=== PATIENT | female | born 1985 | race Caucasian/White ===

== ENCOUNTER 2016-11-12 16:10 | Inpatient (IN) | payer OTHER ==
[~2016-11-12 16:10] MED LIST: PREN1TAB49 PO
[2016-11-12] MEDS ORDERED: TERBUTALINE 1 ML ONE (16:48)
[2016-11-12] MEDS ORDERED: MAGNESIUM SULFATE 4 GM/100 ML 100 ML ONE (16:49)
[2016-11-12] MEDS ORDERED: ACETAMINOPHEN 325 MG TAB PO PRN (17:00)
[2016-11-12] MEDS ORDERED: MAGNESIUM SULFATE 4 GM/100 ML 100 ML IV ONE (17:00)
[2016-11-12] MEDS ORDERED: TERBUTALINE 1 MG/ML INJ SC ONE ×2 (17:00→21:00)
--- NOTE | 2016-11-12 17:16 | RADRPT ---
PROCEDURE: CERVICAL LENGTH ULTRASOUND CLINICAL INDICATION: Contractions. Gestational age is 33 weeks. TECHNIQUE: Trans-vaginal imaging of the cervical canal was performed utilizing steinberg-scale imaging. Sagittal and transverse images were obtained. Trans-abdominal images were also obtained. The gamaliel ges were reviewed on a PACS workstation. COMPARISON: None. FINDINGS: There is a single live intrauterine . heart rate is 157 beats per minute. Position is cephalic and placenta is posterior grade 1. There is no placenta previa. The cervix is closed with a length of 1.4 cm. IMPRESSION: 1. Cervical length is 1.4 cm. RPTAT: QQ .Leonid العلي MD, MD Date Time Electronically viewed and signed by .Leonid العلي MD, on 11/12/2016 17:15 .R/
[2016-11-12] MEDS: LACTATED RINGER'S 1,000 ML IV SCH (17:25)
[2016-11-12] MEDS: MAGNESIUM SULFATE 20 GM/500 ML 500 ML IV SCH (17:50)
[2016-11-12 18:36] LABS: ADD UMIC YES; URINE BILIRUBIN (Dip) NEGATIVE (NEGATIVE); URINE BLOOD (Dip) NEGATIVE (NEGATIVE); URINE COLOR YELLOW (YELLOW); URINE GLUCOSE (Dip) NEGATIVE (NEGATIVE); URINE KETONES (Dip) TRACE (NEGATIVE); URINE LEUKOCYTE ESTERASE (Dip) TRACE (NEGATIVE); URINE NITRITE (Dip) NEGATIVE (NEGATIVE); URINE TOTAL PROTEIN (Dip) TRACE (NEGATIVE); URINE UROBILINOGEN (Dip) 0.2 E.U./dL (0.1-1.0)
[2016-11-12] MEDS: BETAMET NA PHOS/AC(6 MG/ML) 5ML INJ IM SCH (18:42)
[2016-11-12 18:57] LABS: SQUAMOUS EPITHELIAL CELL,UR MANY; URINE RBCS NONE SEEN /HPF (0)
[2016-11-12 18:58] LABS: BACTERIA,URINE FEW; MUCUS,URINE MANY
--- NOTE | 2016-11-12 20:53 | HP ---
Date/Time of Note Date/Time of Note DATE: 11/12/16 TIME: 20:50 OB - History Hx of Present Free Text/Dictation admitted C/O U/C started a week ago Estimated Due Date: Dec 25, 2016 : 5 Para: 3 Spontaneous : 1 Care: Good Care Ultrasounds: Normal mid trimester US Obstetrical Complications: None, Other (+ GBS ) Medical Complications: None Past Family/Social History * Past Medical, Surgical, Family and Obstetric Histories reviewed from chart. Blood Type: A+ Rubella: immune RPR/VDRL: Negative GBS Status: Positive HBsAG: Negative OB Admission Exam Physical Exam HEENT: WNL Heart: Rhythm Normal Lungs: Clear, Equal Abdomen: WNL Extremities: Normal Reflexes: Normal Cervical Dilatation: 2cm Effacement: 50% Station: -3 Membranes: Intact Heart Rate: 140's Accelerations: Accelerations Present Decelerations: No Decelerations Varibility: Marked Contractions on Admission: < 5 Minutes Apart Date/Time Contractions Began: Frequency of Contractions: q 10 Duration: >45 seconds Intensity: Mild OB Assessment/Plan Reason for admission: labor Other Assessment: 33.6 weeks gestation Other plan: Tocolyse labor WILLARD NOVA MD November 12, 2016 20:53
[2016-11-12] MEDS ORDERED: AZITHROMYCIN 250 MG TAB PO ONE (22:00)
[2016-11-13 00:17] LABS: ADD SCAN DIFF NO
[2016-11-13 00:27] LABS: BASOPHILS % 0.1 % (0.0-2.0); HEMATOCRIT 32.3 % (37.0-47.0); HEMOGLOBIN 10.7 g/dl (12.0-16.0); LYMPHOCYTES # 0.8 10^3/ul (0.8-2.9); LYMPHOCYTES % 8.5 % (15.0-51.0); MEAN CORPUSCULAR HGB CONC 33.1 g/dl (32.0-37.0); MEAN CORPUSCULAR VOLUME 93.6 fl (82.0-101.0); MEAN PLATELET VOLUME 10.5 fl (7.4-10.4); MONOCYTE # 0.1 10^3/ul (0.3-0.9); MONOCYTES % 1.2 % (0.0-11.0); NEUTROPHIL # 8.2 10^3/ul (1.6-7.5); NEUTROPHILS % 89.7 % (39.0-77.0); PLATELET COUNT 223 10^3/UL (140-415); RED BLOOD COUNT 3.45 10^6/ul (4.20-5.40); RED CELL DISTRIBUTION WIDTH 13.2 % (11.5-14.5); WHITE BLOOD COUNT 9.1 10^3/ul (4.8-10.8)
[2016-11-13] MEDS: AMPICILLIN 2 GM/NS (PMX) 100 ML IVPB SCH ×4 (00:27→17:36)
[2016-11-13 00:48] LABS: ALBUMIN 3.5 g/dl (3.3-4.9); CREATININE 0.51 mg/dl (0.44-1.00); POTASSIUM 3.8 mmol/L (3.5-5.1)
[2016-11-13] MEDS: MAGNESIUM SULFATE 20 GM/500 ML 500 ML IV SCH ×2 (03:22→13:45)
[2016-11-13] MEDS: LACTATED RINGER'S 1,000 ML IV SCH ×2 (03:23→18:50)
[2016-11-13] MEDS: ONDANSETRON 4 MG INJ IV PRN ×2 (08:57→15:28)
[2016-11-13] MEDS: MULTIVIT/MIN/FOLATE/IRON/PREN TAB PO SCH (09:01)
[2016-11-13] MEDS: BETAMET NA PHOS/AC(6 MG/ML) 5ML INJ IM SCH (17:05)
[2016-11-13] MEDS: NIFEdipine 10 MG CAP PO SCH (18:15)
--- NOTE | 2016-11-13 20:31 | PN ---
Date/Time of Note Date/Time of Note DATE: 11/13/16 TIME: 20:29 OB Subjective Subjective Subjective No more C/O UCs OB Objective Objective Objective VSS P/E unchanged on EFM no UC seen OB Assessment/Plan Reason for admission: labor Other Assessment: 34 + weeks gestation Other plan: will D/C magnesium sulfate start on PO Nifedipine WILLARD NOVA MD November 13, 2016 20:31
--- NOTE | 2016-11-13 20:32 | DS ---
Date/Time of Note Date/Time of Note home next day DATE: 11/13/16 TIME: 20:31 Obstetrical Discharge Record Final Diagnosis Final Diagnosis: not delivered Other Final Diagnosis S/P Uterine contractions Complications Tocolytics: Magnesium Sulfate, Other (Nifedipine ) Condition on Discharge Physical Assessment Voiding: Yes Bowel Movement: Yes Breast: Soft, non-tender, Filling Fundus: Other (Gravid) Abdomen and Incision: abdome: soft ; gravid Episiotomy: NA Calf Tenderness: No Patient Condition: Good WILLARD NOVA MD November 13, 2016 20:32
--- NOTE | 2016-11-13 20:34 | DS ---
Date/Time of Note Date/Time of Note home next day DATE: 11/13/16 TIME: 20:32 Discharge Summary Admission/Discharge Info Admit Date/Time November 12, 2016 at 16:52 Discharge Date/Time Final Diagnosis S/P labor Patient Condition: Good Procedures none Hx of Present Illness 31 y/o female had tocolysis of labor Hospital Course uncomplicated Home Meds Reported Medications Vits W-Ca,Fe,Fa(<1MG) () 1 Tab Tablet, 1 TAB PO DAILY 05/28/12 Primary Care Provider Naren Pena MD Pending Labs Laboratory Tests Test 11/13/16 00:05 11/13/16 05:40 11/13/16 11:50 11/13/16 18:05 White Blood Count 9.110^3/ul (4.8-10.8) Red Blood Count 3.4510^6/ul (4.20-5.40) Hemoglobin 10.7g/dl (12.0-16.0) Hematocrit 32.3% (37.0-47.0) Mean Corpuscular Volume 93.6fl (82.0-101.0) Mean Corpuscular Hemoglobin 31.0pg (29.0-33.0) Mean Corpuscular Hemoglobin Concent 33.1g/dl (32.0-37.0) Red Cell Distribution Width 13.2% (11.5-14.5) Platelet Count 49870^3/UL (140-415) Mean Platelet Volume 10.5fl (7.4-10.4) Neutrophils % 89.7% (39.0-77.0) Lymphocytes % 8.5% (15.0-51.0) Monocytes % 1.2% (0.0-11.0) Eosinophils % 0.0% (0.0-7.0) Basophils % 0.1% (0.0-2.0) Nucleated Red Blood Cells % 0.0/100WBC (0.0-0.0) Neutrophils # 8.210^3/ul (1.6-7.5) Lymphocytes # 0.810^3/ul (0.8-2.9) Monocytes # 0.110^3/ul (0.3-0.9) Eosinophils # 0.010^3/ul (0.0-0.5) Basophils # 0.010^3/ul (0.0-0.1) Nucleated Red Blood Cells # 0.010^3/ul (0.0-0.0) Sodium Level 132mmol/L (135-144) Potassium Level 3.8mmol/L (3.5-5.1) Chloride Level 103mmol/L (97-110) Carbon Dioxide Level 19mmol/L (21-31) Anion Gap 14 (8-16) Blood Urea Nitrogen 5mg/dl (7-20) Creatinine 0.51mg/dl (0.44-1.00) Glucose Level 198mg/dl (70-220) Calcium Level 7.0mg/dl (8.4-10.2) Magnesium Level 5.8mg/dl (1.7-2.5) 6.3mg/dl (1.7-2.5) 6.8mg/dl (1.7-2.5) 6.8mg/dl (1.7-2.5) Total Bilirubin 0.0mg/dl (0.2-1.3) Direct Bilirubin 0.00mg/dl (0.00-0.20) Indirect Bilirubin 0.0mg/dl (0-1.1) Aspartate Amino Transf (AST/SGOT) 22IU/L (15-46) Alanine Aminotransferase (ALT/SGPT) 19IU/L (13-69) Alkaline Phosphatase 149IU/L (42-121) Total Protein 7.0g/dl (6.1-8.1) Albumin 3.5g/dl (3.3-4.9) Globulin 3.50g/dl (1.3-3.2) Albumin/Globulin Ratio 1.00 WILLARD NOVA MD November 13, 2016 20:34
--- NOTE | 2016-11-13 20:35 | PD.PPDC ---
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
[2016-11-13] MEDS ORDERED: NIFE10CA19 PO (20:36)
[2016-11-13] MEDS ORDERED: MAGNESIUM HYDROXIDE 30ML CUP PO PRN (22:00)
[2016-11-14] MEDS: SENNA TAB PO SCH ×2 (00:04→10:10)
[2016-11-14] MEDS: NIFEdipine 10 MG CAP PO SCH ×3 (00:05→11:30)
[2016-11-14] MEDS: AMPICILLIN 2 GM/NS (PMX) 100 ML IVPB SCH ×2 (00:05→05:47)
[2016-11-14] MEDS: LACTATED RINGER'S 1,000 ML IV SCH (03:47)
[2016-11-14] MEDS: MULTIVIT/MIN/FOLATE/IRON/PREN TAB PO SCH (10:10)
== END 2016-11-14 11:35 | disposition home or self-care (01) | DRG 780 ==
LOC: OBT 16:10 → L-D 16:11 → OBT 16:50 → OBG 16:52
PROVIDERS: ADMIT Obstetrics & Gynecology; ATTEND Obstetrics & Gynecology
DX: O47.03 False labor before 37 completed weeks of gestation, third trimester (principal); Z3A.33 33 weeks gestation of pregnancy
CPT/HCPCS: 36415; 76817; 80053; 81001; 81003; 83735; 85025; G0463; J0290; J0702; J2405; J3105; J3475; J7120

== ENCOUNTER 2016-12-18 10:00 | Inpatient (IN) | payer OTHER ==
[~2016-12-18] VITALS: Ht 152.4 cm; Wt 48.6 kg
[~2016-12-18 10:00] MED LIST changes: +NIFE10CA19 PO
[2016-12-18 10:29] VITALS: Ht 152.4 cm; Wt 48.6 kg
[2016-12-18] MEDS ORDERED: METHYLERGONOVINE 0.2 MG INJ IM PRN (10:30)
[2016-12-18] MEDS ORDERED: LIDOCAINE 1% (MPF) 30 ML INJ INJ PRN (10:30)
[2016-12-18] MEDS ORDERED: BUTORPHANOL 2 MG INJ IV PRN (10:30)
[2016-12-18] MEDS ORDERED: LACTATED RINGER'S 1,000 ML IV PRN (10:30)
[2016-12-18] MEDS ORDERED: IBUPROFEN 600 MG TAB PO PRN (10:30)
[2016-12-18] MEDS ORDERED: OXYTOCIN 30 UNITS/LR 500 ML IV SCH ×3 (10:30→11:30)
[2016-12-18] MEDS ORDERED: OXYTOCIN 30 UNITS/LR 500 ML IV PRN (10:30)
[2016-12-18] MEDS ORDERED: MINERAL OIL LIGHT 10 ML VIAL TOP PRN (10:30)
[2016-12-18] MEDS ORDERED: CARBOPROST 250 MCG INJ IM PRN (10:30)
[2016-12-18] MEDS ORDERED: MISOPROSTOL 200 MCG TAB PR PRN (10:30)
[2016-12-18] MEDS ORDERED: AMPICILLIN 2 GM/NS (PMX) 100 ML IVPB ONE (11:00)
[2016-12-18] MEDS: LACTATED RINGER'S 1,000 ML IV SCH ×2 (11:00→18:48)
[2016-12-18 11:13] LABS: ADD SCAN DIFF NO
[2016-12-18 11:23] LABS: BASOPHILS % 0.2 % (0.0-2.0); EOSINOPHILS # 0.2 10^3/ul (0.0-0.5); EOSINOPHILS % 2.2 % (0.0-7.0); HEMATOCRIT 30.5 % (37.0-47.0); HEMOGLOBIN 10.6 g/dl (12.0-16.0); LYMPHOCYTES # 1.7 10^3/ul (0.8-2.9); LYMPHOCYTES % 18.9 % (15.0-51.0); MEAN CORPUSCULAR HEMOGLOBIN 31.5 pg (29.0-33.0); MEAN CORPUSCULAR HGB CONC 34.8 g/dl (32.0-37.0); MEAN CORPUSCULAR VOLUME 90.5 fl (82.0-101.0); MEAN PLATELET VOLUME 10.4 fl (7.4-10.4); MONOCYTE # 0.7 10^3/ul (0.3-0.9); MONOCYTES % 7.8 % (0.0-11.0); NEUTROPHIL # 6.3 10^3/ul (1.6-7.5); NEUTROPHILS % 70.7 % (39.0-77.0); PLATELET COUNT 217 10^3/UL (140-415); RED BLOOD COUNT 3.37 10^6/ul (4.20-5.40); RED CELL DISTRIBUTION WIDTH 13.4 % (11.5-14.5); WHITE BLOOD COUNT 8.9 10^3/ul (4.8-10.8)
[2016-12-18 11:48] LABS: INR 1.01; PROTIME 13.3 Sec (12.2-14.2)
[2016-12-18 11:49] LABS: PARTIAL THROMBOPLASTIN TIME 23.9 Sec (25.0-35.0)
[2016-12-18 13:20] LABS: BARBITURATES Negative (NEGATIVE); BENZODIAZEPINES Negative (NEGATIVE); CANNABINOIDS Negative (NEGATIVE); COCAINE Negative (NEGATIVE); OPIATES Negative (NEGATIVE)
[2016-12-18] MEDS ORDERED: ONDANSETRON 4 MG INJ IV PRN (14:30)
[2016-12-18] MEDS ORDERED: NALOXONE (0.4 MG/ML) INJ IV PRN (14:30)
[2016-12-18] MEDS ORDERED: EPHEDrine SULFATE 50 MG/5 ML SYG IV PRN (14:30)
[2016-12-18] MEDS ORDERED: FENTAnyl 2MCG/ML-ROPIV 0.2% 100 ML BAG EPI SCH (14:30)
[2016-12-18] MEDS: AMPICILLIN 1 GM/NS (PMX) 50 ML IVPB SCH ×2 (15:27→19:29)
--- NOTE | 2016-12-18 20:17 | HP ---
Date/Time of Note Date/Time of Note DATE: 12/18/16 TIME: 20:14 OB - History Hx of Present Free Text/Dictation admitted for elective induction Estimated Due Date: Dec 25, 2016 : 5 Para: 3 Spontaneous : 1 Care: Good Care Ultrasounds: Normal mid trimester US Obstetrical Complications: Other ( labor ) Medical Complications: None Past Family/Social History * Past Medical, Surgical, Family and Obstetric Histories reviewed from chart. Blood Type: A+ Rubella: immune RPR/VDRL: Negative GBS Status: Negative HBsAG: Negative OB Admission Exam Physical Exam HEENT: WNL Heart: Rhythm Normal Lungs: Clear, Equal Abdomen: WNL Extremities: Normal Reflexes: Normal Cervical Dilatation: 3cm Effacement: 75% Station: -3 Membranes: Intact Heart Rate: 140's Accelerations: Accelerations Present Decelerations: Early Decelerations Varibility: Marked Contractions on Admission: >10 Minutes Apart Last 72 hours Lab Results CBC & BMP 12/18/16 10:55 OB Assessment/Plan Other Assessment: term gestation desires labor induction Induction Method: per Pitocin Protocol WILLARD NOVA MD Dec 18, 2016 20:17
--- NOTE | 2016-12-18 20:20 | LDN ---
Date/Time of Note Date/Time of Note DATE: 12/18/16 TIME: 20:18 Delivery Summary of a viable infant over intact perineum Weeks of Gestation 39+ Placenta Delivered: Spontaneously, Intact & Complete Meconium: none Episiotomy: No Perineal laceration: 0 Anesthesia type: Epidural Estimated blood loss: 200 Sponge & Needle done & correct: Yes All needle counts correct: Yes Any foreign bodies felt in the: No Problems: Infant Delivery Information Sex Sex: male Apgars 1 Minute: 9 5 Minute: 9 Suctioning Nose & mouth suctioned at jasmyn: Yes Delee suction performed: No Umbilical Cord Umbilical cord with: 3 Vessels Cord presentations: no nuchal cord Cord Blood was obtained: Yes Mother & Baby Disposition Disposition Mom & Baby to Maternity; Good: Yes (mother and baby were recovered in good condition ) Mom transferred to: Other (maternity ) Baby to NICU: No WILLARD NOVA MD Dec 18, 2016 20:20
[2016-12-19] MEDS: LACTATED RINGER'S 1,000 ML IV* SCH ×2 (00:57→08:57)
[2016-12-19] MEDS ORDERED: OXYTOCIN 30 UNITS/LR 500 ML IV PRN (01:00)
[2016-12-19] MEDS ORDERED: ZOLPIDEM 5 MG TAB PO PRN (01:00)
[2016-12-19] MEDS ORDERED: ACETAMINOPHEN/CODEINE #3 TAB PO PRN (01:00)
[2016-12-19] MEDS ORDERED: WITCH HAZEL/GLYCERIN PAD PR PRN (01:00)
[2016-12-19] MEDS ORDERED: BENZOCAINE 20% 56 ML SPRAY TOP PRN (01:00)
[2016-12-19] MEDS ORDERED: LANOLIN 7 GM TUBE TOP PRN (01:00)
[2016-12-19] MEDS ORDERED: DIBUCAINE 1% 30 GM OINT PR PRN (01:00)
[2016-12-19] MEDS ORDERED: CARBOPROST 250 MCG INJ IM PRN (01:00)
[2016-12-19] MEDS ORDERED: METHYLERGONOVINE 0.2 MG INJ IM PRN (01:00)
[2016-12-19] MEDS ORDERED: MISOPROSTOL 200 MCG TAB PR PRN (01:00)
[2016-12-19 01:25] VITALS: BP 113/78; PULSE 69; RESP 18
[2016-12-19] MEDS: ACETAMINOPHEN/CODEINE #3 TAB PO PRN ×2 (01:44→22:01)
[2016-12-19] MEDS: IBUPROFEN 600 MG TAB PO SCH ×4 (06:16→23:44)
[2016-12-19] MEDS: CEPHALEXIN 500 MG CAP PO SCH ×4 (06:16→23:44)
[2016-12-19 06:53] LABS: ADD SCAN DIFF NO
[2016-12-19 06:59] LABS: BASOPHILS % 0.1 % (0.0-2.0); EOSINOPHILS # 0.2 10^3/ul (0.0-0.5); EOSINOPHILS % 1.5 % (0.0-7.0); HEMATOCRIT 30.2 % (37.0-47.0); HEMOGLOBIN 10.1 g/dl (12.0-16.0); LYMPHOCYTES # 2.4 10^3/ul (0.8-2.9); LYMPHOCYTES % 20.2 % (15.0-51.0); MEAN CORPUSCULAR HEMOGLOBIN 30.8 pg (29.0-33.0); MEAN CORPUSCULAR HGB CONC 33.4 g/dl (32.0-37.0); MEAN CORPUSCULAR VOLUME 92.1 fl (82.0-101.0); MEAN PLATELET VOLUME 10.9 fl (7.4-10.4); MONOCYTE # 0.9 10^3/ul (0.3-0.9); MONOCYTES % 7.4 % (0.0-11.0); NEUTROPHIL # 8.3 10^3/ul (1.6-7.5); NEUTROPHILS % 70.5 % (39.0-77.0); PLATELET COUNT 191 10^3/UL (140-415); RED BLOOD COUNT 3.28 10^6/ul (4.20-5.40); RED CELL DISTRIBUTION WIDTH 13.2 % (11.5-14.5); WHITE BLOOD COUNT 11.7 10^3/ul (4.8-10.8)
[2016-12-19 08:00] VITALS: BP 110/69; PULSE 68; RESP 17
[2016-12-19] MEDS: MAGNESIUM HYDROXIDE 30ML CUP PO SCH ×2 (09:00→22:00)
[2016-12-19] MEDS: SENNA/DOCUSATE NA (8.6MG/50MG) TAB PO SCH ×2 (09:25→22:00)
--- NOTE | 2016-12-19 09:47 | DS ---
Date/Time of Note Date/Time of Note home next day DATE: 12/19/16 TIME: 09:46 Obstetrical Discharge Record Final Diagnosis Final Diagnosis: Term delivered Other Final Diagnosis S/P vaginal delivery Vaginal Delivery Obstetrical Delivery: Spontaneous Complications Augmentation: Yes Condition on Discharge Physical Assessment Last Vitals: see nurses notes Voiding: Yes Bowel Movement: Yes Breast: Soft, non-tender, Filling Fundus: Firm Abdomen and Incision: soft bs+ Episiotomy: NA Calf Tenderness: No Patient Condition: Good WILLARD NOVA MD Dec 19, 2016 09:47
--- NOTE | 2016-12-19 09:48 | PD.PPDC ---
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
[2016-12-19] MEDS ORDERED: IBUP-1542 PO (09:49)
[2016-12-19 12:00] VITALS: BP 111/71; PULSE 77; RESP 18
[2016-12-19 16:00] VITALS: BP 114/75; PULSE 81; RESP 19
[2016-12-19 21:50] VITALS: BP 114/80; PULSE 62; RESP 19
[2016-12-20 04:15] VITALS: BP 107/79; PULSE 60; RESP 17
[2016-12-20] MEDS: IBUPROFEN 600 MG TAB PO SCH ×2 (05:37→14:11)
[2016-12-20] MEDS: CEPHALEXIN 500 MG CAP PO SCH ×3 (05:37→17:34)
[2016-12-20 08:00] VITALS: BP 119/86; PULSE 64; RESP 18
[2016-12-20] MEDS ORDERED: DIPHTH/TET/ACEL PERTUSS (ADULT) 0.5 ML VIAL IM* ONE (09:00)
[2016-12-20] MEDS: SENNA/DOCUSATE NA (8.6MG/50MG) TAB PO SCH (09:00)
[2016-12-20] MEDS ORDERED: VARICELLA VACCINE LIVE/PF 1,350 UNIT/0.5 ML ML SC* ONE (09:00)
[2016-12-20] MEDS ORDERED: MEASLES,MUMPS,RUBELLA VACCINE INJ SC* ONE (09:00)
[2016-12-20] MEDS: MAGNESIUM HYDROXIDE 30ML CUP PO SCH (09:00)
[2016-12-20] MEDS: ACETAMINOPHEN/CODEINE #3 TAB PO PRN ×2 (09:54→17:35)
== END 2016-12-20 17:40 | disposition home or self-care (01) | DRG 775 ==
LOC: L-D 10:11 → OBG 12-19 01:18
PROVIDERS: ADMIT Obstetrics & Gynecology; ATTEND Obstetrics & Gynecology
PROC: 10E0XZZ Delivery of Products of Conception, External Approach (ICD-10-PCS; principal; 2016-12-18 10:00)
PROC: 3E00X4Z Introduction of Serum, Toxoid and Vaccine into Skin and Mucous Membranes, External Approach (ICD-10-PCS; 2016-12-20)
DX: O80 Encounter for full-term uncomplicated delivery (principal); Z23 Encounter for immunization; Z3A.39 39 weeks gestation of pregnancy; Z37.0 Single live birth
CPT/HCPCS: 62319; 80307; 85025; 85610; 85730; 86592; 86885; 86900; 86901; 90715; 90716; J0290; J2590; J3010; J7120